=== PATIENT | male | born 1965 | race Caucasian/White ===

== ENCOUNTER → 2024-04-19 08:41 | Outpatient (REF) | payer OTHER, SELFPAY | LOC: HO.SL 08:41 | PROVIDERS: PCP Internal Medicine; Visit Provider Internal Medicine | DX: R06.83 Snoring (principal); G47.33 Obstructive sleep apnea (adult) (pediatric) | CPT/HCPCS: 95806 ==

== ENCOUNTER 2025-05-31 14:54 | Outpatient (AMB) | payer OTHER, SELFPAY ==
--- NOTE | 2025-05-31 15:16 | MHC.OFFVIS ---
Intake Visit Reasons: Nocturia Intake Note: New patient presents today for initial visit for nocturia Urology Medication:None Blood Thinner:None Antibiotic Allergies:None PVR:70ml Allergies No Known Allergies Allergy (Verified 05/31/25 15:16) Medication List - Last Reconciled 05/31/25 by Ronel Chandler MD buprenorphine-naloxone 8-2 mg (Suboxone) 1 film buccal DAILY clonazepam 1 mg PO BID gabapentin 300 mg PO BID sodium zirconium cyclosilicate (Lokelma) 5 grams PO DAILY HPI Comments Details: 05/31/25-Binu is here as a new patient evaluation with lower urinary tract symptoms nocturia- PFSH Medical History CKD (chronic kidney disease) stage 3, GFR 30-59 ml/min Morbid obesity HTN (hypertension) Office Procedures Post Void Residual Post Residual Void Post Void Residual (PVR): 70 [id number] Void Residual by ultrasound Results AMB Urinalysis, Automated UA Leukoctes 0 Dima/uL Last Edit by Lindsey Evans on 05/31/25 17:11 UA Nitrite Negative Last Edit by Lindsey Evans on 05/31/25 17:11 UA Urobilinogen 0.2 mg/dL Last Edit by Lindsey Evans on 05/31/25 17:11 UA Protein 300 mg/dL Last Edit by Lindsey Evans on 05/31/25 17:11 UA pH 6.0 Last Edit by Lindsey Evans on 05/31/25 17:11 UA Blood 0 Felipe/uL Last Edit by Lindsey Evans on 05/31/25 17:11 UA Specific [place] 1.015 Last Edit by Lindsey Evans on 05/31/25 17:11 UA Ketone Negative Last Edit by Lindsey Evans on 05/31/25 17:11 UA Bilirubin 0 mg/dL Last Edit by Lindsey Evans on 05/31/25 17:11 UA Glucose 100 mg/dL Last Edit by Lindsey Evans on 05/31/25 17:11 Assessment & Plan Assessment & Plan Orders: Orders AMB Urinalysis Automated Today Z13.9 - Encounter for screening, unspecified Coding CPT Codes Post Residual Void - PVR CPT Code: 53299-[id number] Void Residual by ultrasound ([id number])
--- OUTSIDE RECORDS SUMMARY | 2025-05-31 17:47 | XMS_ITS | Clinical Summary ---
Author Organization [facility] Address [address] [place] [address] Care Team Providers Care Website Designer Name Role Phone None, Provider DATABASE PROGRAMMER Primary Care Provider Unavaila ble Allergies No known active allergies Medications lisinopriL (PRINIVIL) 10 mg tablet Take 10 mg by mouth daily. Active amLODIPine (NORVASC) 2.5 mg tablet Take 2.5 mg by mouth 2 times daily. Active Surgical History Surgery Date Site/Laterality Comments CT GUIDED ABLATION KIDNEY TUMOR(S) LEFT Medical History Medical History Date Comments Sleep paralysis Hypertension Social History Tobacco Use Types Packs/Day Years Used Date Smoking Tobacco: Every Day Cigarettes Smokeless Tobacco: Never Tobacco Cessation:Ready to Q uit: Not Asked; Counseling Given: Not Answered Alcohol Use Standard Drinks/Week Comments Yes 0 (1 standard drink = 0.6 oz pur e alcohol) 1 per month Sex and Gender Information Value Date Recorded Sex Assigned at Not on file Legal Sex Male 13:36 EDT Gender Identity Not on file Sexual Orientation Not on file Obstetrics History Last Filed Vital Signs Vital Sign Reading Time Taken Comments Blood Pressure 148/88 12/07/2022 1540 EDT Pulse 74 12/07/2022 1540 EDT Temperature 36.8 C (98.2 F) 12/07/2022 1540 EDT Respiratory Rate 20 12/07/2022 1540 EDT Oxygen Saturation 97% 12/07/2022 1540 EDT Inhaled Oxygen Concentration - - Weight 130.2 kg (287 lb) 12/07/2022 1341 EDT Height 180.3 cm (5' 11 ) 12/07/2022 1341 EDT Body Mass Index 40.03 12/07/2022 1341 EDT Plan of Treatment Health Maintenance Due Date Last Done Comments Hepatitis C Screen 1965 Hepatitis B Vaccine (1 of 3 - 19+ 3-dose series) 11/02 COVID-19 Vaccine (2023- season) [address] [place] [address] [address] MEDICAID Care Teams Website Designer Relationship Specialty Start Date End Date None, Provider, DATABASE PROGRAMMER PCP - General 12/07/22
--- OUTSIDE RECORDS SUMMARY | 2025-05-31 17:48 | XMS_ITS | Clinical Summary ---
Author Organization [facility] Address [address] [address] Phone Care Team Providers Care Welder Fabricator Name Role Phone Unavailable Primary Care Provider Unavailabl e Allergies No known active allergies Medications cyanocobalamin 500 MCG tablet Take 1 tablet by mouth 1 (one) time each day 7 Active Cholecalciferol 50 MCG (1999) capsuleIndication s:Stage 3 chronic kidney disease, not otherwise specified (HCC),Iron deficiency anemia, not otherwise specified,Anemia in chronic kidney disease Take 1 capsule by mouth 1 (one) time each day 90 capsule 3 5 Active gabapentin (NEURONTIN) 300 MG capsule Take 1 capsule (300 mg total) by mouth in the morning and 1 capsule (300 mg total) in the evening. 180 capsule 3 5 026 Active calcitriol (Rocaltrol) 0.25 MCG capsule Take 1 capsule (0.25 mcg total) by mouth 1 (one) time each day 90 capsule 3 5 Active bumetanide (BUMEX) 1 MG tablet Take 1 tablet (1 mg total) by mouth if needed (edema) 5 Active amLODIPine (NORVASC) 5 MG tablet TAKE ONE TABLET BY MOUTH EVERY DAY 90 tablet 3 5 Active hydrALAZINE 100 MG tablet Take 0.5 tablets (50 mg total) by mouth in the morning and 0.5 tablets (50 mg total) in the evening. 180 tablet 3 5 Active hydrALAZINE 100 MG tablet Take 0.5 tablets (50 mg total) by mouth in the morning and 0.5 tablets (50 mg total) in the evening. 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 heart and chron ic kidney disease without heart failure 09/23/2020 Hypertensive renal disease 09/23/2020 Morbid obesity 09/23/2020 Proteinuria 09/23/2020 Vitamin D deficiency 09/23/2020 Renal insufficiency 06/29/2006 Overview (08/04/2021): IMO update Heartburn 06/23/2006 Hypertension 06/18/2006 Hematuria 06/18/2006 Overview (08/04/2021): IMO update Secondary hyperparathyroidism of renal origin Resolved Problems Problem Noted Date Diagnosed Date Resolved Date Stage 3b chronic kidney disease 09/23/2020 08/09/2023 Encounters Date Type Department Care Team Description 05/12/2025 Orders Only [facility] [address] [phone] Vivek Batista MD Chronic kidney disease, stage 4 (severe) ([facility]); Hypertensive heart and chronic kidney disease without heart failure; Hypertensive renal disease 05/11/2025 Refill [facility] [address] [phone] Luba Dyson 05/08/2025 Telephone [facility] [place] [id number] [facility] [address] [place] [phone] Doretha Mayorga MA 04/03/2025 Refill [facility] [address] [place] [phone] Vivek Batista MD 03/29/2025 Refill [facility] [address] [place] [phone] Vivek Batista MD 03/12/2025 2:45 PM EDT Office Visit [facility] [address] [place] [address] [address] [place] [phone] Vivek Batista MD Chronic kidney disease, stage 4 (severe) (HCC) (Primary Dx); Hypertensive heart and chronic kidney disease without heart failure; Hypertensive renal disease; Secondary hyperparathyroidism of renal origin (HCC); Hyperkalemia from Last 3 Months Immunizations Immunization Administration Dates Next Due Tdap 07/12/2014 Family History Medical History Relation Comments Kidney disease Father ckd 85yo Relation Status Comments Father Social History Tobacco Use Types Packs/Day Years Used Date Smoking Tobacco: Some Days Smokeless Tobacco: Never Tobacco Cessation:Ready to Q uit: Not Asked; Counseling Given: Not Answered Alcohol Use Standard Drinks/Week Comments No 0 (1 standard drink = 0.6 oz pur e alcohol) Sex and Gender Information Value Date Recorded Sex Assigned at Not on file Legal Sex Male 4:44 PM EST Gender Identity Not on file Sexual Orientation Not on file Last Filed Vital Signs Vital Sign Reading Time Taken Comments Blood Pressure 130/80 03/12/2025 2:52 PM EDT Pulse 59 03/12/2025 2:52 PM EDT Temperature - - Respiratory Rate - - Oxygen Saturation 98% 03/12/2025 2:52 PM EDT Inhaled Oxygen Concentration - - Weight 95.7 kg (211 lb) 03/12/2025 2:52 PM EDT Height 180.3 cm (5' 11 ) 03/10/2021 10:44 AM EDT Body Mass Index 29.43 03/10/2021 10:44 AM EDT Plan of Treatment Upcoming Encounters Date Type Department Care Team (Late st Contact Info) Description 06/13/2025 10:45 AM EST Office Visit [facility] [address] [facility] [address] [place] [phone] Mariola Hays RESIDENTIAL DESIGNER [address] [facility] [address] [place] [phone] Health Maintenance Due Date Last Done Comments Hepatitis B Vaccine (1 of 3 - 19+ 3-dose series) 11/02/1986 09/20/2024, 08/04/2024 Pneumococcal Vaccine: 50+ Ye ars (1 of 2 - PCV) 11/02/1986 Colorectal Cancer Screening: Annual FOBT 11/02/2016 Colorectal Cancer Screening: Colonoscopy 11/02/2016 Colorectal Cancer Screening: Sigmoidoscopy 11/02/2016 Influenza Vaccine (#1) 2025 Procedures Procedure Name Priority Date/Time Associated Diagnosis Comments VITAMIN D 25 HYDROXY Routine 03/09/2025 8:34 AM EDT Chronic kidney disease, stage 4 (severe) (HCC) Secondary hyperparathyroidism of renal origin (HCC) Tobacco dependence syndrome Hypercholesterolemia, not otherwise specified Renal mass Other proteinuria PROTEIN / CREATININE RATIO, URINE Routine 03/09/2025 8:34 AM EDT Chronic kidney disease, stage 4 (severe) (HCC) Secondary hyperparathyroidism of renal origin (HCC) Tobacco dependence syndrome Hypercholesterolemia, not otherwise specified Renal mass Other proteinuria RENAL FUNCTION PANEL Routine 03/09/2025 8:34 AM EDT Chronic kidney disease, stage 4 (severe) (HCC) Secondary hyperparathyroidism of renal origin (HCC) Tobacco dependence syndrome Hypercholesterolemia, not otherwise specified Renal mass Other proteinuria PTH, INTACT Routine 03/09/2025 8:34 AM EDT Chronic kidney disease, stage 4 (severe) (HCC) Secondary hyperparathyroidism of renal origin (HCC) Tobacco dependence syndrome Hypercholesterolemia, not otherwise specified Renal mass Other proteinuria from Last 3 Months Results * (ABNORMAL) Urine Protein / creatinine ratio (03/09/2025 8:34 AM EDT) Creatinine, Ur 69.9 Not Estab. mg/dL [facility] Protein, Ur 196.9 Not Estab. mg/dL [facility] Urine Protein/Creati nine Ratio 2,817(H) 0 - 200 mg/g creat [facility] Urine specimen (specimen) Urine specimen obtained by clean catch procedure / Unknown 03/09/2025 8:34 AM EDT 03/09/2025 Vivek Batista MD LAB URINE ORDERABLES Final Resu lt Performing Organization Address City/[facility]/ZIP Co de Phone Number [facility] [address] [place] [phone] * Vitamin D 25 hydroxy (03/09/2025 8:34 AM EDT) Vitamin D, 25-OH, Total 38.6 30.0 - 100.0 ng/mL [facility] Comment: Vitamin D deficiency has been defined by the [place] of Medicine and an Endocrine Society practice guideline as a level of serum 25-OH vitamin D less than 20 ng/mL (1,2). The Endocrine Society went on to further define vitamin D insufficiency as a level between 21 and 29 ng/mL (2). 1. IOM ([place] of [employer]). 2010. Dietary reference intakes for calcium and D. [place]: The National Academies Press. 2. Alivia MF, Nithin HERNANDEZ, Evelyn LOTT, et al. Evaluation, treatment, and prevention of vitamin D deficiency: an Endocrine Society clinical practice guideline. JCEM. 2010; 96(7):1911-30. Blood specimen (specimen) Venous blood / Unknown 03/09/2025 8:34 AM EDT 03/09/2025 us Vivek Batista MD LAB BLOOD ORDERABLES Final Resu lt [facility] [address] [place] [address] * (ABNORMAL) PTH, intact (03/09/2025 8:34 AM EDT) PTH 135(H) 15 - 65 pg/mL [facility] Blood specimen (specimen) Venous blood / Unknown 03/09/2025 8:34 AM EDT 03/09/2025 us Vivek Batista MD LAB BLOOD ORDERABLES Final Resu lt [facility] [address] [place] [address] * (ABNORMAL) Renal function panel (03/09/2025 8:34 AM EDT) Pathologist [facility] Glucose 93 70 - 99 mg/dL [facility] BUN 63(H) 6 - 24 mg/dL [facility] Creatinine 4.23(H) 0.76 - 1.27 mg/dL [facility] eGFR CKD-EPI CR 2020 16(L) >59 mL/min/1.7 3 [facility] BUN/Creatinine Ratio 15 9 - 20 [facility] Sodium 143 134 - 144 mmol/L [facility] Potassium 5.6(H) 3.5 - 5.2 mmol/L [facility] Chloride 106 96 - 106 mmol/L [facility] Bicarbonate (CO2) 22 20 - 29 mmol/L [facility] Calcium 9.1 8.7 - 10.2 mg/dL [facility] Albumin 3.9 3.8 - 4.9 g/dL [facility] Phosphorus 5.3(H) 2.8 - 4.1 mg/dL [facility] Blood specimen (specimen) Venous blood / Unknown 03/09/2025 8:34 AM EDT 03/09/2025 us Vivek Batista MD LAB BLOOD ORDERABLES Final Resu lt [facility] [address] [place] [address] from Last 3 Months Insurance [facility] Medicaid
--- OUTSIDE RECORDS SUMMARY | 2025-05-31 17:48 | XMS_ITS | Clinical Summary ---
Author Organization [facility] Address [address] [place] [address] Phone Care Team Providers Care Monorail Hooker Name Role Phone Bernardo Aguilar MD Primary Care Provider Unavaila ble Surgical History Surgery Date Site/Laterality Comments CHOLECYSTECTOMY 08/2020 PROCEDURE: HISTORICAL CHOLECYSTECTOMY; COMMENT: lap converted to open Dr Faustin Social History Tobacco Use Types Packs/Day Years Used Date Smoking Tobacco: Former Cigarettes Q uit: 06/18/2006 Alcohol Use Standard Drinks/Week Comments Not Asked 0 (1 standard drink = 0.6 oz pur e alcohol) Sex and Gender Information Value Date Recorded Sex Assigned at Not on file Legal Sex Male 1:43 PM EST Gender Identity Not on file Sexual Orientation Not on file Obstetrics History Plan of Treatment Health Maintenance Due Date Last Done Comments Colorectal Cancer Screening: Colonoscopy 1967 Hepatitis A Vaccines (1 of 2 - Risk 2-dose series) 11/02/1986 Pneumococcal Vaccine: 50+ Years (1 of 1 - PCV) 11/02/2017 Cholesterol Screening (Lipid Panel) 06/30/2022 HIV Screening 06/30/2022 Hepatitis C Screening 06/30/2022 Social Influencers of Health Screening 06/30/2022 Hypertension/CHF/CAD Annual BMP Blood Test 07/18/2022 DTaP,Tdap,and Td Vaccines (2 - Td or Tdap) 07/12/2024 07/12/2014 Depression Screening 08/02/2024 Hepatitis B Vaccines (3 of 3 - 19+ 3-dose series) 02/01/2025 09/20/2024, 08/04/2024 COVID-19 Vaccine (4 - 2024-2 6 season) 2025 08/07/2021, 12/12/2020, 11/21/2020 Influenza Vaccine (#1) 2025 , 07/12/2014 RSV Immunization Adult Patients (1 - 1-dose 75+ series) 11/02/2042 Zoster Vaccines Completed 06/08/2023, 03/31/2023 HIB Vaccines Aged Out No longer eligi ble based on patient's age to complete this topic HPV Vaccines Aged Out No longer eligi ble based on patient's age to complete this topic IPV Vaccines Aged Out No longer eligi ble based on patient's age to complete this topic MMR Vaccines Aged Out No longer eligi ble based on patient's age to complete this topic Meningococcal ACWY Vaccine Aged Out N o longer eligible based on patient's age to complete this topic Meningococcal B Vaccine Aged Out No l onger eligible based on patient's age to complete this topic RSV Immunization Patients Under 20 months Aged Out No longer eligible b ased on patient's age to complete this topic Varicella Vaccines Aged Out No longer eligible based on patient's age to complete this topic [place] [address] [place] [address] PLAN Care Teams Monorail Hooker Relationship Specialty Start Date End Date Bernardo Aguilar MD PCP - General 06/17/1999
--- OUTSIDE RECORDS SUMMARY | 2025-05-31 17:48 | XMS_ITS | Encounter Summary ---
Author Organization [facility] Address [address] [place] [address] Phone Care Team Providers Care Cabana Attendant Name Role Phone Stevie Tineo MD Primary Care Provider [phone] Vivek Batista MD Unavailable [phone] Pedro Bahena MD, MPH Unavailable [phone] Encounter Details Date Type Department Care Team (Late st Contact Info) Description 12/18/2021 Procedure Pass [facility] Periop [address] [place] [address] Social History Tobacco Use Types Packs/Day Years Used Date Smoking Tobacco: Former Smokeless Tobacco: Never Alcohol Use Standard Drinks/Week Comments Not Currently 0 (1 standard drink = 0.6 oz pur e alcohol) Sex and Gender Information Value Date Recorded Sex Assigned at Not on file Legal Sex Male 3:51 PM EDT Gender Identity Not on file Sexual Orientation Not on file documented as of this encounter Plan of Treatment Upcoming Encounters Date Type Department Care Team (Late st Contact Info) Description 09/20/2024 Procedure Pass [facility] MR Imaging, [address] [place] [address] 07/04/2025 10:00 AM EST Appointment [facility] MR Imaging, [address] [place] [address] Fernando Palmer MD [address] [place] [address] [email or web address] 07/09/2025 8:00 AM EST Telemedicine - audio only [facility] Radiology [facility] [address] [facility], [address] Floor, [place] [address] Fernando Palmer MD [address] [place] [address] [email or web address] documented as of this encounter Visit Diagnoses Not on filedocumented in this encounter Care Teams Cabana Attendant Relationship Specialty Start Date End Date Stevie Tineo MD [address] [place] [address], [address] [place] [address] [email or web address] PCP - General Urology 10/29/21 Vivek Batista MD [address] [place] [address], [address] [place] [address] [email or web address] Nephrology 10/29/21 Pedro Bahena MD, MPH [address] [facility] [address] [place] [address] [email or web address] Urology 10/30/21 documented as of this encounter Additional Source Comments The information contained in this document represents components of the legal health record. It is not the complete legal health record.[facility]
--- OUTSIDE RECORDS SUMMARY | 2025-05-31 17:48 | XMS_ITS | Encounter Summary ---
Author Organization [facility] Address [address] [facility] [address] [place] [address] Phone Care Team Providers Care Supervisor Paper Testing Name Role Phone Stevie Tineo MD Primary Care Provider [phone] Vivek Batista MD Unavailable [phone] Pedro Bahena MD, MPH Unavailable [phone] Encounter Details Date Type Department Care Team (Late st Contact Info) Description 12/04/2021 Procedure Pass [address] [address] Social History Tobacco Use Types Packs/Day Years [...] st Contact Info) Description 09/20/2024 Procedure Pass [facility] MR Imaging, [address] [place] [address] 07/04/2025 10:00 AM EST Appointment [facility] MR Imaging, [address] [place] [address] Fernando Palmer MD [address] [place] [address] [email or web address] 07/09/2025 8:00 AM EST Telemedicine - audio only [facility] Radiology [facility] [address] [facility], [address] Floor, [place] [address] Fernando Palmer MD [address] [place] [address] [email or web address] documented as of this encounter Visit Diagnoses Not on filedocumented in this encounter Care Teams Supervisor Paper Testing Relationship Specialty Start Date End Date Stevie Tinoe MD [address] [place] [address], [address] [place] [address] [email or web address] PCP - General Urology 10/29/21 Vivek Batista MD [address] [place] [address], [address] [place] [address] [email or web address] Nephrology 10/29/21 Pedro Bahena MD, MPH [address] [facility] [address] [place] [address] [email or web address] Urology 10/30/21 documented as of this encounter Additional Source Comments The information contained in this document represents components of the legal health record. It is not the complete legal health record.[facility]
--- OUTSIDE RECORDS SUMMARY | 2025-05-31 17:48 | XMS_ITS ---
Author Name [facility] Organization Unknown Care Team Organization Name Specialty Phone Email Start Date End Da te [facility] Carmelo Easton Primary [facility] 06/09/20222023
--- OUTSIDE RECORDS SUMMARY | 2025-05-31 17:48 | XMS_ITS | Encounter Summary ---
Author Organization [facility] Address [address] [facility] [address] [place] [address] Phone Care Team Providers Care Disciplinary Hearing Officer Name Role Phone Stevie Tineo MD Primary Care Provider Vivek Batista MD Unavailable [phone] Pedro Bahena MD, MPH Unavailable [phone] Encounter Details Date Type Department Care Team ([facility] st Contact Info) Description 06/22/2024 Ancillary Orders [facility] Radiology Department [address] [facility] [id number] [place] [address] Fernando Palmer MD [address] [place] [address] [email or web address] History of renal cell carcinoma (Primary Dx) Social History Tobacco Use Types Packs/Day Years Used Date Smoking Tobacco: Former Smokeless Tobacco: Never Alcohol Use Standard Drinks/Week Comments Not Currently 0 (1 standard drink = 0.6 oz pur e alcohol) Education Answer Date Recorded Are you interested in more education? Not on agata e 11/28/2022 Are you concerned about learning? Not on file 11/28/2022 No 11/28/2022 No 11/28/2022 Digital Access Answer Date Recorded No 12/26/2022 No 12/26/2022 No 12/26/2022 Reliable internet access at home? Not on file 12/26/2022 Device with a working camera? Not on file Sex and Gender Information Value Date Recorded Sex Assigned at Not on file Legal Sex Male 3:51 PM EDT Gender Identity Not on file Sexual Orientation Not on file documented as of this encounter Plan of Treatment Upcoming Encounters Date Type Department Care Team (Late st Contact Info) Description 09/20/2024 Procedure Pass [facility] MR Imaging, [address] [place] [address] 07/04/2025 10:00 AM EST Appointment [facility] MR Imaging, [address] [place] [address] Fernando Palmer MD [address] [place] [address] [email or web address] 07/09/2025 8:00 AM EST Telemedicine - audio only [facility] Radiology Cross [facility] [address] [facility], [address]rd Floor, [place] [address] Fernando Palmer MD [address] [place] [address] [email or web address] documented as of this encounter Visit Diagnoses Diagnosis History of renal cell carcinoma- Primary documented in this encounter Care Teams Disciplinary Hearing Officer Relationship Specialty Start Date End Date Stevie Tineo MD [address] [place] [address], [address] [address] [email or web address] PCP - General Urology 10/29/21 Vivek Batista MD [address] [place] [address], [address] [place] [address] [email or web address] Nephrology 10/29/21 Pedro Bahena MD, MPH [address] [place] [address] [address] [place] [address] [email or web address] Urology 10/30/21 documented as of this encounter Additional Source Comments The information contained in this document represents components of the legal health record. It is not the complete legal health record.[facility]
--- OUTSIDE RECORDS SUMMARY | 2025-05-31 17:48 | XMS_ITS | Encounter Summary ---
Author Organization [facility] Address [address] [place] [address] Phone Care Team Providers Care Dowel Setting Machine Operator Name Role Phone Suresh Fernández MD Primary Care Provider [phone] Encounter Details Date Type Department Care Team (Late Contact Info) Description 06/23/2021 Telephone [facility] [address] [place] [address] Emma Pickett MA Social History Tobacco Use Types Packs/Day Years Used Date Smoking Tobacco: Some Days Smokeless Tobacco: Never Alcohol Use Standard Drinks/Week Comments No 0 [...] [facility] [address] [address] Mariola Hays ARNP [address] [address] documented as of this encounter Visit Diagnoses Not on filedocumented in this encounter Care Teams Dowel Setting Machine Operator Relationship Specialty Start Date End Date Suresh Fernández MD [address] [place] [address] PCP - General Internal Medicine 04/30/23 03/09/25 documented as of this encounter
--- OUTSIDE RECORDS SUMMARY | 2025-05-31 17:48 | XMS_ITS | Clinical Summary ---
Author Organization [facility] Address [address] [address] Phone Care Team Providers Care Creative Services Manager Name Role Phone Stevie Tineo MD Primary Care Provider [phone] Vivek Batista MD Unavailable [phone] Pedro Bahena MD, MPH Unavailable [phone] Allergies No known active allergies Medications amLODIPine (NORVASC) 5 MG tablet Take 5 mg by mouth. 09/30/2020 Active hydrALAZINE (APRESOLINE) 10 MG tablet TAKE ONE TABLET BY MOUTH TWICE A DAY IN THE MORNING AND IN THE EVENING 12/08/2021 Active VITAMIN D3 50 mcg (2,000 unit) capsule Take 2,000 Units by mouth daily. 12/08/2021 Active gabapentin (NEURONTIN) 300 MG capsule Take 200 mg by mouth 2 (two) times a day. 2021 Active oxyCODONE 5 MG immediate release tabletIndicatio ns:Renal cell carcinoma of right kidney Take 1-2 tablets (5-10 mg total) by mouth every 6 (six) hours as needed for moderate pain. Partial fill ok 12 tablet 12/18/2021 Active Active Problems Problem Noted Date Diagnosed Date CKD (chronic kidney disease) stage 4, GFR 15-29 ml/min 04/21/2024 History of renal cell carcinoma 11/17/2021 Family History Medical History Relation Comments Kidney cancer Neg Hx Social History Tobacco Use Types Packs/Day Years [...] Sign Reading Time Taken Comments Blood Pressure 158/88 12/18/2021 6:26 PM EDT Pulse 65 12/18/2021 6:26 PM EDT Temperature 36.5 C (97.7 F) 12/18/2021 6:26 PM EDT Respiratory Rate 13 12/18/2021 6:26 PM EDT Oxygen Saturation 99% 12/18/2021 6:26 PM EDT Inhaled Oxygen Concentration - - Weight 132.9 kg (293 lb) 12/11/2021 8:32 AM EDT Height 180.3 cm (5' 11 ) 12/11/2021 8:32 AM EDT Body Mass Index 40.87 12/11/2021 8:32 AM EDT Plan of Treatment Upcoming Encounters Date Type Department Care Team (Late st Contact Info) Description 09/20/2024 Procedure Pass [facility] Imaging, [address] [place] [address] 07/04/2025 10:00 AM EST Appointment [facility] MR Imaging, [address] [place] [address] Fernando Palmer MD [address] [place] [id number] [email or web address] 07/09/2025 8:00 AM EST Telemedicine - audio only [facility] Radiology [facility] [address] [facility], 3rd Floor, [place] [address] Fernando Palmer MD [address] [place] [phone] [email or web address] Due Date Last Done Comments LIPID PANEL 1967 DEPRESSION SCREENING 1979 SMOKING Hx and SMOKELESS TOBACCO SCREENING 11/02/1980 HEPATITIS C SCREENING 11/02/1985 HIV ONE-TIME SCREENING (18-6 5 YEARS) 11/02/1985 COLOGUARD 11/02/2012 COLONOSCOPY 11/02/2012 COLORECTAL CANCER SCREENING 11/02/2012 FIT TEST 11/02/2012 FOBT 11/02/2012 SIGMOIDOSCOPY 11/02/2012 VIRTUAL COLONOSCOPY 11/02/2012 PNEUMOCOCCAL VACCINES (50+ years) (1 of 1 - PCV) 11/02/2017 Adult Td,Tdap Booster 07/12/2024 07/12/2014 INFLUENZA VACCINE (#1) 2025 03/31/2023 COVID-19 VACCINE (4 - 2024-2 6 season) 2025 08/07/2021, 12/12/2020, 11/21/2020 RSV VACCINE (1 - 1-dose 75+ series) 11/02/2042 ZOSTER VACCINES Completed 06/08/2023, 03/31/2023 HEPATITIS A VACCINES Aged Out No long er eligible based on patient's age to complete this topic HIB VACCINES Aged Out No longer eligi ble based on patient's age to complete this topic MENINGOCOCCAL VACCINES (ACWY) Aged Out No longer eligible based on patient's age to complete this topic MENINGOCOCCAL VACCINES (B) Aged Out N o longer eligible based on patient's age to complete this topic Medical Devices Implanted Type Area Window Dresser Device Identifier Shelf Expiration Date Model / Serial / Lot Lab Band Abdomen Description:2011 Insurance [facility] [place] [address] [place] [address] [employer] [facility] Care Teams Creative Services Manager Relationship Specialty Start Date End Date Stevie Tineo MD [address] [place] [address], [address] [place] [address] [email or web address] [facility] - General Urology 10/29/21 Vivek Batista MD [address] [place] [address], [address] [place] [address] [email or web address] 10/29/21 Pedro Bahena MD, MPH [address] [place] [address] [address] [place] [address] [email or web address] 10/30/21 Additional Source Comments The information contained in this document represents components of the legal health record. It is not the complete legal health record.[facility]
== END 2025-05-31 16:06 | disposition home or self-care (01) ==
LOC: HO.HUSH 14:54
PROVIDERS: PCP Internal Medicine; Visit Provider Urology
DX: Z13.9 Encounter for screening, unspecified (principal)

== ENCOUNTER → 2025-05-31 14:54 | Outpatient (BNVA) | payer OTHER, SELFPAY | PROVIDERS: PCP Internal Medicine; Visit Provider Urology | DX: R35.1 Nocturia (principal); R39.9 Unspecified symptoms and signs involving the genitourinary system; G47.30 Sleep apnea, unspecified; E66.9 Obesity, unspecified; I12.9 Hypertensive chronic kidney disease with stage 1 through stage 4 chronic kidney disease, or unspecified chronic kidney disease; N18.9 Chronic kidney disease, unspecified; Z13.9 Encounter for screening, unspecified | CPT/HCPCS: 51798; 81003; 99202 ==